=== PATIENT | male | born 1945 | race Native Hawaiian/Other Pacific Islander ===

== ENCOUNTER 2017-04-15 08:53 | Outpatient (CLI) | payer OTHER | END 2017-04-15 18:01 | disposition home or self-care (01) | LOC: RAD 08:53 | DX: Z01.818 Encounter for other preprocedural examination (principal) ==

== ENCOUNTER 2017-04-24 07:27 | Outpatient (CLI) | payer OTHER ==
[~2017-04-24] VITALS: Ht 30.5 cm; Wt 0.5 kg
== END 2017-04-24 22:31 | disposition home or self-care (01) ==
LOC: NM 07:27
DX: Z01.818 Encounter for other preprocedural examination (principal)
CPT/HCPCS: A9500; J2785

== ENCOUNTER 2017-05-02 13:59 | Outpatient (CLI) | payer OTHER ==
[2017-05-02 14:34] LABS: POTASSIUM 3.7 mmol/L (3.6-5.2); SODIUM 137 mmol/L (136-145)
== END 2017-05-03 05:20 | disposition home or self-care (01) ==
LOC: LABW 13:59
PROVIDERS: Nurse Practitioner
DX: E87.8 Other disorders of electrolyte and fluid balance, not elsewhere classified (principal)
CPT/HCPCS: 36415; 80048

== ENCOUNTER 2018-07-22 14:21 | Outpatient (CLI) | payer OTHER | END 2018-07-22 20:26 | disposition home or self-care (01) | LOC: RAD 14:21 | DX: Z01.818 Encounter for other preprocedural examination (principal) ==

== ENCOUNTER 2018-10-13 10:57 | Outpatient (CLI) | payer OTHER | END 2018-10-13 19:04 | disposition home or self-care (01) | LOC: LABW 10:57 | DX: I10 Essential (primary) hypertension (principal); N28.89 Other specified disorders of kidney and ureter ==

== ENCOUNTER 2018-10-14 07:34 | Outpatient (CLI) | payer OTHER ==
[2018-10-14 07:59] LABS: PLATELET COUNT 350 K/uL (142-355)
[2018-10-14 08:29] LABS: POTASSIUM 3.8 mmol/L (3.6-5.2)
== END 2018-10-14 23:31 | disposition home or self-care (01) ==
LOC: LABW 07:34
PROVIDERS: Internal Medicine
DX: I10 Essential (primary) hypertension (principal); N28.89 Other specified disorders of kidney and ureter; Z79.899 Other long term (current) drug therapy
CPT/HCPCS: 36415; 80053; 82024; 82088; 82533; 83835; 84244; 84436; 84443; 85027